=== PATIENT | female | born 1975 | race African-American/Black ===

== ENCOUNTER 2016-08-31 07:10 | Emergency (ER) | payer OTHER ==
--- NOTE | 2016-08-31 07:19 | PDOC ---
History of Present Illness - General History Source: Patient, Old Records Exam Limitations: No Limitations <Aneta Osullivan - Last Filed: 08/31/16 10:49> <Richmond Youngblood - Last Filed: 08/31/16 14:02> - General Chief Complaint: Chest Pain Stated Complaint: cheCHEST PAIN Time Seen by Provider: 08/31/16 07:15 - History of Present Illness Initial Comments: 08/31/16 08:41 The patient is a 41 year old female, with a significant past medical history of HTN, hyperlipidemia and diabetes, who presents to the emergency department with chest pain for the past 4 hours. The patient states that she was in her usual state of health last night. She reports that she went to sleep and at approximately 3AM, she woke up with the dizziness, palpitations, then associated a sharp chest pain with tingling in her left arm. She reports that she attempted to sleep off her symptoms but couldn't so she called an ambulance to bring her to the ED and the symptoms resolved when she was given ntg by EMS. She states that she has felt these symptoms before, she estimates a couple times a month, and occurs at random times. The patient denies fever, chills, headache, diaphoresis, cough, nausea or vomiting. Pt denies any association of these symptoms with exertion. Allergies: None reported. Past Surgical History: None reported. Family History: CHF (mother, ) Social History: Non smoker. Denies alcohol or drug use. PCP: Dr. Jensen (Aneta Osullivan) Past History <Aneta Osullivan - Last Filed: 08/31/16 10:49> - Past Medical History Diabetes: Yes HTN: Yes Hypercholesterolemia: Yes - Immunization History Immunization Up to Date: Yes - Psycho/Social/Smoking Cessation Hx Anxiety: No Suicidal Ideation: No Smoking History: Never smoked Have you smoked in the past 12 months: No Hx Alcohol Use: No Drug/Substance Use Hx: No Substance Use Type: None Hx Substance Use Treatment: No <Richmond Youngblood - Last Filed: 08/31/16 14:02> - Past Medical History Allergies/Adverse Reactions: Allergies Allergy/AdvReac Type Severity Reaction Status Date / Time No Known Allergies Allergy Verified 08/31/16 07:14 Home Medications: Ambulatory Orders Enalapril Maleate 2.5 mg PO DAILY 04/24/16 Metformin HCl [Metformin HCl ER] 500 mg PO DAILY 04/24/16 Simvastatin [Zocor -] 20 mg PO HS 04/24/16 Aspirin [ASA -] 81 mg PO DAILY 08/31/16 Review of Systems - Review of Systems Able to Perform ROS?: Yes <Aneta Osullivan - Last Filed: 08/31/16 10:49> <Richmond Youngblood - Last Filed: 08/31/16 14:02> - Review of Systems Comments:: 08/31/16 08:43 CONSTITUTIONAL: No reported: Fever, Chills, Diaphoresis, Generalized Weakness, Malaise, Loss of Appetite HEENT: No reported: Rhinorrhea, Nasal Congestion, Throat Pain, Throat Swelling, Difficulty Swallowing, Mouth Swelling, Ear Pain, Eye Pain, Visual Changes CARDIOVASCULAR: Reported: +Chest pain, Palpitations, Lightheadedness No reported: Syncope, Irregular Heart Rate, Peripheral Edema RESPIRATORY: Reported: +Shortness of breath No reported: Cough, SOB with Exertion, Orthopnea, Wheezing, Stridor, Hemoptysis. GASTROINTESTINAL: No reported: Abdominal pain, Abdominal Distension, Nausea, Vomiting, Diarrhea, Constipation, Melena, Hematochezia GENITOURINARY: No reported: Dysuria, Frequency, Urgency, Hesitancy, Flank Pain, Genital Pain MUSCULOSKELETAL: No reported: Myalgia, Arthralgia, Joint Swelling, Back pain, Neck Pain SKIN: No reported: Rash, Itching, Pallor HEMATOLOGIC/IMMUNOLOGIC: No reported: Easy Bleeding, Easy Bruising, Lymphadenopathy, Frequent infections ENDOCRINE: No reported: Unexplained Weight Gain, Unexplained Weight Loss, Heat Intolerance , Cold Intolerance NEUROLOGIC: Reported: +Numbness/tingling in left arm No reported: Headache, Focal Weakness, Paresthesias, Vertigo, Lightheadedness, Unsteady Gait, Seizure, Mental Status Changes, Incontinence PSYCHIATRIC: No reported: Anxiety, Depression (Aneta Osullivan) *Physical Exam <Aneta Osullivan - Last Filed: 08/31/16 10:49> <Richmond Youngblood - Last Filed: 08/31/16 14:02> - Vital Signs Last Vital Signs Temp Pulse Resp BP Pulse Ox 98.3 F 98 H 20 125/70 98 08/31/16 09:03 08/31/16 09:03 08/31/16 09:03 08/31/16 09:03 08/31/16 09:03 - Physical Exam Comments: 08/31/16 08:44 GENERAL: The patient is awake, alert, and fully oriented, Nontoxic - in no acute distress. HEAD: Normocephalic, atraumatic. EYES: Extraocular movements intact, sclera anicteric, conjunctiva clear. ENT: Normal voice, Moist mucous membranes. NECK: Normal range of motion, supple. LUNGS: Breath sounds equal, clear to auscultation bilaterally. No wheezes, no rhonchi, no rales. HEART: Regular rate and rhythm, without murmur, rub or gallop. ABDOMEN: Soft, nontender, normoactive bowel sounds. No guarding, no rebound. No CVA tenderness. EXTREMITIES: Normal range of motion, no edema. No clubbing or cyanosis. No cords, erythema, or tenderness. NEUROLOGICAL: No facial asymmetry. Normal speech. PSYCH: Normal mood, normal affect. SKIN: Warm, dry, normal turgor. (Aneta Osullivan) Heart Score/ECG Review <Aneta Osullivan - Last Filed: 08/31/16 10:49> <Richmond Youngblood - Last Filed: 08/31/16 14:02> - ECG Impressions Comment:: 08/31/16 10:05 Twelve-lead EKG was performed and reviewed by me. There is normal sinus rhythm with a normal rate. Rate of 100 The axis is normal. The intervals are normal. There is normal R wave progression There are no ST or T wave abnormalities. Impression: Normal twelve-lead EKG 08/31/16 13:32 Twelve-lead EKG was performed and reviewed by me. There is normal sinus rhythm with a normal rate. Rate of 83 The axis is normal. The intervals are normal. There is normal R wave progression There are no ST or T wave abnormalities. No significant change when compared with EKG from earlier today Impression: Normal twelve-lead EKG (Richmond Youngblood) ED Treatment Course - LABORATORY CBC & Chemistry Diagram: 08/31/16 07:30 08/31/16 07:30 <Aneta Osullivan - Last Filed: 08/31/16 10:49> - LABORATORY CBC & Chemistry Diagram: 08/31/16 07:30 08/31/16 07:30 <Richmond Youngblood - Last Filed: 08/31/16 14:02> - ADDITIONAL ORDERS Additional order review: Laboratory Results 08/31/16 08/31/16 08/31/16 12:48 07:30 07:30 Sodium Potassium Chloride Carbon Dioxide Anion Gap BUN Creatinine Creat Clearance w eGFR Random Glucose Calcium Total Bilirubin AST ALT Alkaline Phosphatase Creatine Kinase Troponin I < 0.02 Total Protein Albumin TSH Cancelled Serum , Qual Negative Urine Color Yellow Urine Appearance Clear Urine pH 5.0 Ur Specific [place] 1.025 Urine Protein 1+ H Urine Glucose (UA) Negative Urine Ketones 2+ H Urine Blood Negative Urine Nitrite Negative Urine Bilirubin Negative Urine Urobilinogen Negative Ur Leukocyte Esterase Negative Urine RBC <1 Urine WBC 1 Ur Epithelial Cells Rare Urine Mucus Rare 08/31/16 07:30 Sodium 137 Potassium 4.0 Chloride 101 Carbon Dioxide 27 Anion Gap 9 BUN 8 D Creatinine 0.5 L Creat Clearance w eGFR > 60 Random Glucose 107 H Calcium 8.3 L Total Bilirubin 0.5 D AST 17 D ALT 23 D Alkaline Phosphatase 90 D Creatine Kinase 112 Troponin I < 0.02 Total Protein 7.4 Albumin 3.9 TSH 1.45 D Serum , Qual Urine Color Urine Appearance Urine pH Ur Specific [place] Urine Protein Urine Glucose (UA) Urine Ketones Urine Blood Urine Nitrite Urine Bilirubin Urine Urobilinogen Ur Leukocyte Esterase Urine RBC Urine WBC Ur Epithelial Cells Urine Mucus 08/31/16 07:30 RBC 4.21 MCV 92.4 MCHC 33.4 RDW 14.3 MPV 7.8 Neutrophils % 59.8 Lymphocytes % 32.8 Monocytes % 5.1 Eosinophils % 1.4 Basophils % 0.9 - RADIOLOGY Radiology Studies Ordered: Category Date Time Status CHEST X-RAY PORTABLE* [RAD] Stat Radiology 08/31/16 07:24 Completed - Medications Given in the ED: ED Medications Discontinued Medications Generic Name Dose Route Start Last Admin Trade Name Freq PRN Reason Stop Dose Admin Aspirin 162 mg 08/31/16 07:39 08/31/16 07:45 Asa - PO 08/31/16 07:40 162 mg ONCE ONE Administration Sodium Chloride 1,000 mls @ 1,000 mls/hr 08/31/16 07:24 08/31/16 07:37 Normal Saline - IV 08/31/16 08:23 1,000 mls/hr .Q1H ONE Administration Medical Decision Making <Aneta Osullivan - Last Filed: 08/31/16 10:49> <Richmond Youngblood - Last Filed: 08/31/16 14:02> - Medical Decision Making 08/31/16 10:49 EXAM: RAD/CHEST X-RAY PORTABLE Reviewed By: Dr. Jhony Matos IMPRESSION: No acute pathology. No change of an adverse nature since 02/16/2016. (Aneta Osullivan) 08/31/16 07:37 41y F hx of htn, hl, dm, presents with episode of palpitations, lightheadedness , chest pain and tingling that radiated to her arm for several hours this morning. Resolved when she got some ntg from EMS. sypmtmos are nonexertional. Pt currently asypmtomatic. Exam unremarkable. Vitals reveal HR of 100. will r/o anemia, metabolic dernagement, sypmtoms atypical of ACS but will r/o with 2 sets of troponin and ekgs will reassess 08/31/16 09:54 The patient's labs were reviewed and they are unremarkable Will observe the patient a repeat troponin 6 hours. 08/31/16 14:00 The patient's repeat troponin and EKG are negative and unchanged. The patient is currently asymptomatic I will discharge patient to follow up with primary care doctor as well as cardiology for further evaluation of her palpitations. Return precautions were discussed I discussed the physical exam findings, ancillary test results and final diagnoses with the patient. I answered all of the patient's questions. The patient was satisfied with the care received and felt comfortable with the discharge plan and treatment plan. The patient will call their primary care physician within 24 hours to arrange follow-up and will return to the Emergency Department with any new, persistent or worsening symptoms. (Richmond Youngblood) *DC/Admit/Observation/Transfer <Aneta Osullivan - Last Filed: 08/31/16 10:49> - Discharge Dispostion Admit: No <Richmond Youngblood - Last Filed: 08/31/16 14:02> Diagnosis at time of Disposition: Palpitations Chest pain Qualifiers: Chest pain type: unspecified Qualified Code(s): R07.9 - Chest pain, unspecified - Discharge Dispostion Disposition: HOME Condition at time of disposition: Improved - Referrals Referrals: Rhys Jensen [Primary Care Provider] - Toño Yanes MD [Staff Physician] - - Patient Instructions Printed Discharge Instructions: DI for Atypical Chest Pain, DI for Palpitations Additional Instructions: Return to the emergency department immediately with ANY new, persistent or worsening symptoms. Please follow-up with your biopharmaceutical rep for further evaluation of your chest discomfort and palpitations. If you need a biopharmaceutical rep he may follow-up with Dr. Yanes. You MUST call and follow up with your doctor tomorrow for further evaluation of your symptoms. Results were discussed with you. Please make sure your doctor reviews the results of your emergency evaluation. Print Language: MONGOLIAN - Attestations Scribe Attestion: 08/31/16 08:07 Documentation prepared by Aneta Osullivan, acting as medical record librarian for Richmond Youngblood MD. (Aneta Osullivan)
[2016-08-31 07:23] VITALS: BMI 31.6
[2016-08-31] MEDS ORDERED: SODIUM CHLORIDE 1,000 ML IV ONE (07:24)
[2016-08-31] MEDS ORDERED: ASPIRIN 81 MG CHEWABLE TABLETS PO ONE (07:39)
[2016-08-31] MEDS ORDERED: ASPIRIN 81 MG CHEWABLE TABLETS ONE (07:46)
[2016-08-31 07:50] LABS: BASOPHIL 0.9 % (0-2.0); EOSINOPHIL 1.4 % (0-4.5); MCH 30.9 pg (25.7-33.7); MCHC 33.4 g/dl (32.0-36.0); MEAN CELL VOLUME 92.4 fl (80-96); MEAN PLT VOLUME 7.8 fl (7.5-11.1); NEUTROPHILS 59.8 % (42.8-82.8); PLATELET COUNT 287 K/MM3 (134-434); RDW 14.3 % (11.6-15.6); WHITE BLOOD COUNT 8.3 K/mm3 (4.0-10.0)
[2016-08-31 08:13] LABS: URINE APPEARANCE CLEAR; URINE BILIRUBIN NEGATIVE (NEGATIVE); URINE BLOOD NEGATIVE (NEGATIVE); URINE COLOR YELLOW; URINE GLUCOSE (UA) NEGATIVE (NEGATIVE); URINE KETONE 2+ (NEGATIVE); URINE LEUK ESTERASE NEGATIVE (NEGATIVE); URINE NITRITE NEGATIVE (NEGATIVE); URINE UROBILINOGEN NEGATIVE E.U./dl (0.2-1.0)
[2016-08-31 08:25] LABS: URINE PROTEIN 1+ (NEGATIVE)
[2016-08-31 08:27] LABS: ALBUMIN 3.9 g/dl (3.4-5.0); ANION GAP 9 (8-16); BILIRUBIN,TOTAL 0.5 mg/dL (0.2-1.0); CALCIUM 8.3 mg/dL (8.5-10.1); CO2 27 mmol/L (21-32); CREATININE 0.5 mg/dL (0.55-1.02); GLUCOSE,RANDOM 107 mg/dL (74-106); SGOT/AST 17 U/L (15-37); SGPT/ALT 23 U/L (12-78); TOT PROT 7.4 g/dl (6.4-8.2)
[2016-08-31 08:36] LABS: ALK PHOS 90 U/L (45-117); THYROID STIMULATING HORMONE 1.45 uIU/ml (0.358-3.74); TROPONIN I < 0.02 ng/ml (0.00-0.05)
[2016-08-31 08:38] LABS: URINE MUCUS RARE; URINE RBC <1 /hpf (0-3); URINE WBC 1 /hpf (3-5)
[2016-08-31 09:04] VITALS: TEMP 98.3
[2016-08-31 14:12] VITALS: BP 124/70; PULSE 92
--- NOTE | 2016-08-31 23:19 | EKG ---
Test Reason : Blood Pressure : / mmHG Vent. Rate : 083 BPM Atrial Rate : 083 BPM P-R Int : 176 ms QRS Dur : 068 ms QT Int : 388 ms P-R-T Axes : 022 025 028 degrees QTc Int : 455 ms NORMAL SINUS RHYTHM POSSIBLE LEFT ATRIAL ENLARGEMENT BORDERLINE ECG WHEN COMPARED WITH ECG OF 31-AUG-2016 07:18, NO SIGNIFICANT CHANGE WAS FOUND Confirmed by ISSAC ONTIVEROS MD ([id number]) on 08/31/2016 11:19:03 PM Referred By: Confirmed By:ISSAC ONTIVEROS MD
--- NOTE | 2016-08-31 23:23 | EKG ---
Test Reason : Blood Pressure : / mmHG Vent. Rate : 100 BPM Atrial Rate : 100 BPM P-R Int : 164 ms QRS Dur : 068 ms QT Int : 354 ms P-R-T Axes : 040 032 040 degrees QTc Int : 456 ms NORMAL SINUS RHYTHM NORMAL ECG WHEN COMPARED WITH ECG OF 30-JUL-2016 00:51, VENT. RATE HAS INCREASED BY 33 BPM T WAVE VARIATION Confirmed by ISSAC ONTIVEROS MD ([id number]) on 08/31/2016 11:22:59 PM Referred By: Confirmed By:ISSAC ONTIVEROS MD
== END 2016-08-31 14:12 | disposition home or self-care (01) ==
LOC: JER 07:10
DX: R07.89 Other chest pain (principal); R00.2 Palpitations; E11.9 Type 2 diabetes mellitus without complications; Z79.84 Long term (current) use of oral hypoglycemic drugs; E78.00 Pure hypercholesterolemia, unspecified; I10 Essential (primary) hypertension
CPT/HCPCS: 36415; 71010-TC; 80053; 81003; 81015; 82550; 84443; 84484; 84703; 85025; 93005; 93010; 99285-25

== ENCOUNTER 2021-03-28 14:15 | Emergency (ER) | payer OTHER ==
[2021-03-28 14:28] VITALS: TEMP 97.7; BMI 39.9
[2021-03-28 15:58] LABS: BASO % 0.8 % (0-2.0); HEMATOCRIT 38.2 % (32.4-45.2); HEMOGLOBIN 12.8 GM/dL (10.7-15.3); LYMPH % 35.2 % (8-40); MCH 30.1 pg (25.7-33.7); MCHC 33.4 g/dl (32.0-36.0); MEAN PLT VOLUME 8.1 fl (7.5-11.1); MONO % 6.9 % (3.8-10.2); NEUT % 55.1 % (42.8-82.8); PLATELET COUNT 373 10^3/uL (134-434); RBC 4.24 M/mm3 (3.60-5.2); RDW 14.1 % (11.6-15.6); WHITE BLOOD COUNT 7.5 K/mm3 (4.0-10.0)
[2021-03-28 16:17] LABS: CHLORIDE 108 mmol/L (98-107); SODIUM 141 mmol/L (136-145)
[2021-03-28 16:19] LABS: ANION GAP 6 MMOL/L (8-16); BLOOD UREA NITROGEN 6.5 mg/dL (7-18); CALCIUM 8.3 mg/dL (8.5-10.1); CO2 26 mmol/L (21-32); GLUCOSE,RANDOM 111 mg/dL (74-106)
[2021-03-28 16:22] LABS: SGPT/ALT 23 U/L (13-61)
[2021-03-28 16:23] LABS: SGOT/AST 13 U/L (15-37)
[2021-03-28 16:24] LABS: BILIRUBIN,TOTAL 0.4 mg/dL (0.2-1); CREATININE 0.7 mg/dL (0.55-1.3); TOT PROT 7.5 g/dl (6.4-8.2)
[2021-03-28 16:25] LABS: ALK PHOS 85 U/L (45-117)
[2021-03-28] MEDS ORDERED: ACETAMINOPHEN 500 MG TABLET (FP) PO ONE (16:45)
[2021-03-28] MEDS ORDERED: SODIUM CHLORIDE 0.9% 500 ML INFUS.BAG IV ONE (16:46)
[2021-03-28] MEDS ORDERED: ACETAMINOPHEN 325 MG TABLET (FP) ONE (17:31)
[2021-03-28] MEDS ORDERED: ASPIRIN 81 MG CHEWABLE TABLETS PO ONE ×2 (17:34→17:38)
[2021-03-28] MEDS ORDERED: ASPIRIN 81 MG CHEWABLE TABLETS ONE (17:58)
[2021-03-28 20:21] VITALS: BP 121/59; PULSE 88
== END 2021-03-28 20:21 | disposition home or self-care (01) ==
LOC: JER 14:15
DX: R07.9 Chest pain, unspecified (principal)
CPT/HCPCS: 36415; 71045-TC-FY; 80053; 82550; 84484; 85025; 93005; 93010; 99285-25; C9803; U0003; U0005